=== PATIENT | male | born 1955 | race Caucasian/White ===

== ENCOUNTER 2021-02-08 16:42 | Emergency (ER) | payer OTHER ==
[2021-02-08 17:00] VITALS: BP 138/83; PULSE 89; TEMP 97.7; BMI 23.7
== END 2021-02-08 18:16 | disposition left against medical advice (07) ==
LOC: JERFT 16:42 → JER 16:42 → JERFT 18:16
DX: S61.219A Laceration without foreign body of unspecified finger without damage to nail, initial encounter (principal); S62.630B Displaced fracture of distal phalanx of right index finger, initial encounter for open fracture
CPT/HCPCS: 73140-TC-RT-FY; 99283-25